=== PATIENT | female | born 1970 | race Two or more races ===

== ENCOUNTER 2020-11-13 19:08 | Emergency (ER) | payer BC, OTHER ==
[~2020-11-13] VITALS: Ht 172.7 cm; Wt 59.0 kg
--- NOTE | 2020-11-13 19:20 | NUR ---
called 911, so much stress laterly, lost her father.
[2020-11-13] MEDS ORDERED: ESCI10TA PO (19:21)
[2020-11-13] MEDS ORDERED: AMLO5TAB4 PO (19:24)
--- NOTE | 2020-11-13 19:25 | NUR ---
PT BROUGT IN FOR ANXIETY ATTACK. PT IS A/OX3. VSS. PT ON ROOM AIR SHOWING NO S/S OF RESP DISTRES/SOB. WILL CONTINUE TO MONITOR AND ASSESS FOR ANY CHANGES.
[2020-11-13] MEDS ORDERED: LORAZEPAM 1 MG TABLET ONE (19:26)
[2020-11-13] MEDS ORDERED: LORAZEPAM 1 MG TABLET PO ONE (19:30)
--- NOTE | 2020-11-13 19:38 | NUR ---
PT REFUSING TO SIGN DISCHARGE PAPERS. PT UPSET WITH MD. PRESCRIPTION AND EDUCATION PAPERS PROVIDED. MD MADE AWARE.
--- NOTE | 2020-11-13 19:39 | NUR ---
Patient discharged to home in stable condition. Written and verbal after care instructions given. Patient verbalizes understanding of instruction.
[2020-11-13 19:46] VITALS: BP 146/78
== END 2020-11-13 19:47 | disposition home or self-care (01) ==
LOC: ER 19:10
DX: F41.9 Anxiety disorder, unspecified (principal); F32.9 Major depressive disorder, single episode, unspecified; I10 Essential (primary) hypertension; Z88.0 Allergy status to penicillin; Z79.899 Other long term (current) drug therapy

== ENCOUNTER 2021-06-10 18:03 | Emergency (ER) | payer BC, MEDICAID ==
[~2021-06-10] VITALS: Ht 172.7 cm; Wt 59.0 kg
[~2021-06-10 18:03] MED LIST: AMLO5TAB4 PO; ESCI10TA PO
--- NOTE | 2021-06-10 18:05 | NUR ---
TO ER BED 10. [id number] FRM HOME C/O WEAKNESS x 5DAYS. PT STATED THAT "I JUST WANT A REFILL FOR EFFEXOR AND BE ABLE TO GO HOME. DR RUELAS AT BEDSIDE.
[2021-06-10] MEDS ORDERED: VENLAFAXINE XR 150 MG CAP.SR.24H ONE (18:52)
[2021-06-10] MEDS ORDERED: HYDROCODONE/APAP 10/325MG TABLET ONE (18:52)
--- NOTE | 2021-06-10 18:56 | NUR ---
Patient discharged to home in stable condition. Written and verbal after care instructions given. Patient verbalizes understanding of instruction.
[2021-06-10 18:59] VITALS: BP 127/81
[2021-06-10] MEDS ORDERED: VENLAFAXINE 37.5 MG TABLET PO ONE (19:00)
[2021-06-10] MEDS ORDERED: HYDROCODONE/APAP 10/325MG TABLET PO ONE (19:00)
== END 2021-06-10 18:59 | disposition home or self-care (01) ==
LOC: ER 18:05
DX: F41.9 Anxiety disorder, unspecified (principal); F32.A Depression, unspecified; I10 Essential (primary) hypertension; Z88.0 Allergy status to penicillin; Z79.899 Other long term (current) drug therapy